=== PATIENT | female | born 1965 | race Caucasian/White ===

== ENCOUNTER 2020-08-09 10:46 | Observation (INO) | payer OTHER ==
[2020-08-09 15:01] LABS: Absolute Lymphocytes (CBC) 0.8 K/uL (0.7-4.9); Basophils % 0.5 % (0-1.3); Hematocrit 30.9 % (36.0-45.0); Lymphocytes % 23.8 % (15.3-44.8); MPV 8.5 fL (7.6-11.3); RBC Red Blood Cell Count 3.55 M/uL (3.86-4.86)
[2020-08-09 15:12] LABS: Protime INR 0.89
[2020-08-09 15:26] LABS: ALT/SGPT 23 U/L (12-78); AST/SGOT 16 U/L (15-37); Albumin 3.6 g/dL (3.4-5.0); Alkaline Phosphatase 101 U/L (45-117); BUN Blood Urea Nitrogen 9 mg/dL (7-18); Bicarbonate 29 mmol/L (21-32); Bilirubin Direct < 0.1 mg/dL (0-0.2); Bilirubin Total 0.3 mg/dL (0.2-1.0); Glucose Level 95 mg/dL (74-106); Magnesium 2.1 mg/dL (1.8-2.4); Potassium 3.8 mmol/L (3.5-5.1); Protein, Total 7.2 g/dL (6.4-8.2); Sodium Level 142 mmol/L (136-145)
[2020-08-09 15:39] LABS: NT PRO-BNP 423 pg/mL (<125); Troponin (Emerg Dept Use Only) < 0.02 ng/mL (0.0-0.045)
--- NOTE | 2020-08-09 15:47 | RAD REPORT ---
EXAM DESCRIPTION: RAD - Chest Single View - 08/09/2020 3:35 pm CLINICAL HISTORY: shortness of breath Chest pain. COMPARISON: No comparisons FINDINGS: Portable technique limits examination quality. The lungs are grossly clear. The heart is mildly enlarged in size. No displaced fractures. IMPRESSION: No acute intrathoracic process suspected.
--- NOTE | 2020-08-09 16:25 | RAD REPORT ---
EXAM DESCRIPTION: US - Extrem Venous W Compress Srikanth - 08/09/2020 4:16 pm CLINICAL HISTORY: leg swelling Bilateral leg edema and swelling. COMPARISON: No comparisons TECHNIQUE: Real-time sonographic interrogation of the left and right lower extremity deep venous sys tems was performed. FINDINGS: Normal compressibility, flow augmentation, phasic flow and spontaneous flow is identified in both the left and right lower extremity deep venous systems. IMPRESSION: No sonographic evidence of left or right lower extremity deep venous thrombosis.
--- NOTE | 2020-08-09 16:46 | RAD REPORT ---
EXAM DESCRIPTION: CT - Chest For Pe Angio - 08/09/2020 4:36 pm CLINICAL HISTORY: Chest pain. shortness of breath COMPARISON: No comparisons TECHNIQUE: CT angiogram of the pulmonary arteries was performed with MIP. All CT scans are performed using dose optimization technique as appropriate and may include automated exposure control or mA/KV adjustment according to patient size. FINDINGS: No evidence of pulmonary thromboembolism. No acute aortic finding demonstrated. Mild interstitial pulmonary edema suspected. Small bilateral pleural effusions. No concerning bony finding. Postsurgical changes about the stomach. IMPRESSION: No evidence of pulmonary thromboembolism. Mild CHF versus volume overload.
--- NOTE | 2020-08-09 18:20 | ER ---
Nurse's Notes [facility] Name: Angelica Kirkland Age: 54 yrs Sex: Female : 1965 Arrival Date: 08/09/2020 Time: 10:47 Bed 23 Private MD: Diagnosis: Acute combined systolic (congestive) and diastolic (congestive) heart failure Presentation: 08/09 10:52 Chief complaint: Lower leg swelling and SOB x 4 days, palpitations today. Coronavirus hb screen: At this time, the client does not indicate any symptoms associated with coronavirus-19. Ebola Screen: No symptoms or risks identified at this time. Initial Sepsis Screen: Does the patient meet any 2 criteria? No. Patient's initial sepsis screen is negative. Does the patient have a suspected source of infection? No. Patient's initial sepsis screen is negative. Risk Assessment: Do you want to hurt yourself or someone else? Patient reports no desire to harm self or others. Onset of symptoms was August 05, 2020. 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 - Social history:: Smoking status: Patient denies any tobacco usage or history of. Screenin:58 Abuse screen: Denies threats or abuse. Denies injuries from another. Nutritional ca1 screening: No deficits noted. Tuberculosis screening: No symptoms or risk factors identified. Fall Risk IV access (20 points). Assessment: 13:58 General: Appears in no apparent distress. comfortable, Behavior is calm, cooperative, ca1 appropriate for age. Pain: Denies pain. Pain does not radiate. Pain began. Neuro: Level of Consciousness is awake, alert, obeys commands, Oriented to person, place, time, situation, Appropriate for age. Cardiovascular: Heart tones S1 S2 present Capillary refill < 3 seconds Patient's skin is warm and dry. Edema is 1+ to left ankle, left foot, left toes, right ankle, right foot and right toes. Respiratory: Reports shortness of breath on exertion Airway is patent Respiratory effort is even, unlabored, Respiratory pattern is regular, symmetrical, Breath sounds are clear bilaterally. GI: Abdomen is round non-distended, Bowel sounds present X 4 quads. Abd is soft and non tender X 4 quads. : No signs and/or symptoms were reported regarding the genitourinary system. EENT: No signs and/or symptoms were reported regarding the EENT system. Derm: Skin is intact, is healthy with good turgor, Skin is pink, warm \T\ dry. Musculoskeletal: Circulation, motion, and sensation intact. Capillary refill < 3 seconds. 14:50 Reassessment: Patient appears in no apparent distress at this time. Patient and/or ca1 family updated on plan of care and expected duration. Pain level reassessed. Patient is alert, oriented x 3, equal unlabored respirations, skin warm/dry/pink. 15:50 Reassessment: Patient appears in no apparent distress at this time. Patient and/or ca1 family updated on plan of care and expected duration. Pain level reassessed. Patient is alert, oriented x 3, equal unlabored respirations, skin warm/dry/pink. 16:41 Reassessment: Patient appears in no apparent distress at this time. Patient and/or ca1 family updated on plan of care and expected duration. Pain level reassessed. Patient is alert, oriented x 3, equal unlabored respirations, skin warm/dry/pink. 17:45 Reassessment: Patient appears in no apparent distress at this time. Patient and/or ca1 family updated on plan of care and expected duration. Pain level reassessed. Patient is alert, oriented x 3, equal unlabored respirations, skin warm/dry/pink. 18:50 Reassessment: Patient appears in no apparent distress at this time. Patient and/or ca1 family updated on plan of care and expected duration. Pain level reassessed. Patient is alert, oriented x 3, equal unlabored respirations, skin warm/dry/pink. 19:47 Reassessment: Patient appears in no apparent distress at this time. Patient and/or ca1 family updated on plan of care and expected duration. Pain level reassessed. Patient is alert, oriented x 3, equal unlabored respirations, skin warm/dry/pink. Vital Signs: 10:52 BP 160 / 67; Pulse 63; Resp 16; Temp 98.3; Pulse Ox 97% on R/A; Weight 122.47 kg; hb Height 5 ft. 8 in. (172.72 cm); Pain 0/10; 14:55 BP 159 / 98; Pulse 56; Resp 17 S; Pulse Ox 98% on R/A; ca1 15:50 BP 165 / 86; Pulse 57; Resp 16 S; Pulse Ox 99% on R/A; ca1 16:50 BP 172 / 92; Pulse 63; Resp 16 S; Pulse Ox 99% on R/A; ca1 17:50 BP 154 / 87; Pulse 55; Resp 16 S; Pulse Ox 99% on R/A; ca1 18:55 BP 166 / 67; Pulse 55; Resp 16 S; Pulse Ox 100% on R/A; ca1 19:45 BP 155 / 81; Pulse 55; Resp 16 S; Pulse Ox 98% on R/A; ca1 10:52 Body Mass Index 41.05 (122.47 kg, 172.72 cm) hb ED Course: 10:47 Patient arrived in ED. ds1 10:54 Triage completed. hb 10:57 Arm band placed on. hb 13:49 Terry Deshpande PA is PHCP. jmm 13:49 Jose Toussaint MD is Attending Physician. m 13:54 Vianca Xiao, KERRIE is Primary Nurse. ca1 13:58 Patient has correct armband on for positive identification. Placed in gown. Bed in low ca1 position. Call light in reach. Side rails up X2. hvac tech on. Pulse ox on. NIBP on. Warm blanket given. Head of bed elevated. 14:03 Patient maintains SpO2 saturation greater than 95% on room air. ca1 14:26 EKG done, by ED staff, reviewed by Terry VELA. dh3 15:34 Notified Nurse Practitioner and/or Physician Laboratory Tester of a critical lab result(s), hb DDIMER [id number]. 15:35 XRAY Chest (1 view) In Process Unspecified. EDMS 16:16 US Extremity Venous W Compression Srikanth In Process Unspecified. EDMS 16:35 CT Chest For PE Angio In Process Unspecified. EDMS 18:19 Meir Harris DO is Hospitalizing Provider. [facility] 19:47 No provider procedures requiring assistance completed. Patient admitted, IV remains in ca1 place. 19:48 Report given to KERRIE Gamez. ca1 Administered Medications: 19:07 Drug: Lasix 40 mg Route: IVP; Site: right antecubital; ca1 19:50 Follow up: Urine output 300 ml; Response: No adverse reaction ca1 Output: 19:50 Urine: 300ml; Total: 300ml. ca1 Outcome: 18:19 Decision to Hospitalize by Provider. [facility] 19:47 Admitted to ER Hold. Please see [facility] for further documentation. ca1 19:47 Condition: stable 19:47 Instructed on the need for admit. 08/10 01:49 Patient left the ED. mw2 Signatures: Dispatcher [employer] EDMS Terry Deshpande PA PA Li Alcaraz ds1 Eileen Mathis, RN RN Dominique Keenan 3 Sharron Felder mw2 Vianca Xiao RN RN ca1
--- NOTE | 2020-08-09 18:20 | EDPHYS ---
Physician Documentation [facility] Name: Angelica Kirkland Age: 54 yrs Sex: Female : 1965 Arrival Date: 08/09/2020 Time: 10:47 Bed 23 Private MD: ED Physician Jose Toussaint HPI: 08/09 14:16 This 54 yrs old Female presents to ER via Ambulatory with complaints of jmm Irregular Pulse, Shortness Of Breath. 14:16 The patient has shortness of breath with light activity. Onset: The symptoms/episode jmm began/occurred gradually, 3 day(s) ago. Duration: The symptoms are continuous. The patient's shortness of breath is aggravated by exertion, light activity. Associated signs and symptoms: Pertinent negatives: chest pain, fever. This is a 54 year old female with a history of anxiety, depression that presents to the ED with complaints of shortness of breath, palpitations, swelling to her lower legs beginning this past Friday. Denies fever, productive cough. . 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 - Social history:: Smoking status: Patient denies any tobacco usage or history of. ROS: 14:16 Constitutional: Negative for fever, chills, and weight loss, Cardiovascular: Negative jmm for chest pain, palpitations, and edema. 14:16 Back: Negative for injury and pain. 14:16 Respiratory: Positive for shortness of breath. 14:16 Abdomen/GI: Positive for swelling. 14:16 MS/extremity: Positive for swelling. 14:16 All other systems are negative. Exam: 14:16 Constitutional: This is a well developed, well nourished patient who is awake, alert, jmm and in no acute distress. Head/Face: atraumatic. Eyes: EOMI, no conjunctival erythema appreciated ENT: Moist Mucus Membranes Neck: Trachea midline, Supple Chest/axilla: Normal chest wall appearance and motion. Cardiovascular: Regular rate and rhythm. No edema appreciated Respiratory: Normal respirations, no respiratory distress appreciated Abdomen/GI: Non distended, soft Back: Normal ROM Skin: General appearance color normal 14:16 Musculoskeletal/extremity: mild edema noted to the legs bilaterally, compartments are soft, dorsalis pulse appreciated, bilaterally. 14:16 Skin: Appearance: Color: normal in color. 14:16 Neuro: Orientation: is normal, Mentation: is normal, Memory: is normal. 14:16 Psych: Behavior/mood is pleasant, cooperative. 14:32 ECG was reviewed by the Attending Physician. [facility] Vital Signs: 10:52 BP 160 / 67; Pulse 63; Resp 16; Temp 98.3; Pulse Ox 97% on R/A; Weight 122.47 kg; hb Height 5 ft. 8 in. (172.72 cm); Pain 0/10; 14:55 BP 159 / 98; Pulse 56; Resp 17 S; Pulse Ox 98% on R/A; ca1 15:50 BP 165 / 86; Pulse 57; Resp 16 S; Pulse Ox 99% on R/A; ca1 16:50 BP 172 / 92; Pulse 63; Resp 16 S; Pulse Ox 99% on R/A; ca1 17:50 BP 154 / 87; Pulse 55; Resp 16 S; Pulse Ox 99% on R/A; ca1 18:55 BP 166 / 67; Pulse 55; Resp 16 S; Pulse Ox 100% on R/A; ca1 19:45 BP 155 / 81; Pulse 55; Resp 16 S; Pulse Ox 98% on R/A; ca1 10:52 Body Mass Index 41.05 (122.47 kg, 172.72 cm) hb MDM: 14:12 Patient medically screened. [facility] 18:18 Data reviewed: vital signs, nurses notes. Counseling: I had a detailed discussion with [facility] the patient and/or guardian regarding: the historical points, exam findings, and any diagnostic results supporting the discharge/admit diagnosis, radiology results, the need for further work-up and treatment in the hospital. ED course: I discussed the patient with MARTA Connor whom accepted the patient to Dr. Kimberly jeffrey. . 08/09 14:13 Order name: Basic Metabolic Panel; Complete Time: 15:29 [facility] 08/09 14:13 Order name: CBC with Diff [facility] 08/09 14:13 Order name: LFT's [facility] 08/09 14:13 Order name: Magnesium [facility] 08/09 14:13 Order name: NT PRO-BNP [facility] 08/09 14:13 Order name: PT-INR [facility] 08/09 14:13 Order name: Troponin (emerg Dept Use Only) [facility] 08/09 14:13 Order name: Procalcitonin [facility] 08/09 14:13 Order name: Lactate [facility] 08/09 14:13 Order name: D-Dimer [facility] 08/09 15:10 Order name: CBC with Automated Diff; Complete Time: 15:16 [facility] 08/09 15:24 Order name: Lactate; Complete Time: 15:29 [facility] 08/09 15:26 Order name: Liver (Hepatic) Function; Complete Time: 15:29 [facility] 08/09 15:27 Order name: Magnesium; Complete Time: 15:29 [facility] 08/09 14:13 Order name: XRAY Chest (1 view); Complete Time: 16:00 [facility] 08/09 14:13 Order name: EKG; Complete Time: 14:14 [facility] 08/09 14:13 Order name: Cardiac monitoring; Complete Time: 14:57 [facility] 08/09 14:13 Order name: EKG - Nurse/Tech; Complete Time: 14:29 [facility] 08/09 15:33 Order name: Protime (+INR); Complete Time: 15:37 [facility] 08/09 15:33 Order name: D-Dimer; Complete Time: 15:37 [facility] 08/09 15:34 Order name: CT Chest For PE Angio; Complete Time: 16:54 [facility] 08/09 15:34 Order name: US Extremity Venous W Compression Srikanth; Complete Time: 16:27 [facility] 08/09 15:39 Order name: Troponin (Emerg Dept Use Only); Complete Time: 15:44 EDMS 08/09 15:39 Order name: NT PRO-BNP; Complete Time: 15:44 [facility] 08/09 15:48 Order name: Procalcitonin; Complete Time: 16:00 [facility]DC 08/09 18:22 Order name: COVID-19 ca1 08/09 19:12 Order name: CORONAVIRUS [facility] 08/09 20:00 Order name: SARS-COV-2 RT PCR; Complete Time: 20:04 [facility]DC 08/09 23:30 Order name: Troponin I; Complete Time: 23:32 [facility]DC 08/09 14:13 Order name: IV Saline Lock; Complete Time: 14:57 [facility] 08/09 14:13 Order name: Labs collected and sent; Complete Time: 14:57 [facility] 08/09 14:13 Order name: O2 Per Protocol; Complete Time: 14:57 [facility] 08/09 14:13 Order name: O2 Sat Monitoring; Complete Time: 14:57 jmm EC:32 Rate is 57 beats/min. Rhythm is regular. QRS [place] is Normal. VA interval is normal. QRS jmm interval is normal. QT interval is normal. No Q waves. T waves are Inverted in lead aVR. T waves are Flattened in leads III, aVL, aVF. Reviewed by me. Administered Medications: 19:07 Drug: Lasix 40 mg Route: IVP; Site: right antecubital; ca1 19:50 Follow up: Urine output 300 ml; Response: No adverse reaction ca1 Disposition: 08/09/20 18:19 Hospitalization ordered by Meir Harris for Observation. Preliminary diagnosis is Acute combined systolic (congestive) and diastolic (congestive) heart failure. - Bed requested for Telemetry/MedSurg (observation). - Status is Observation. mw2 - Condition is Stable. - Problem is new. - Symptoms are unchanged. Addendum: 08/22/2020 04:00 Co-signature as Attending Physician, Jose Toussaint MD. m a2 Signatures: Dispatcher [employer] EDDC Terry Deshpande PA PA [facility] Gaurav Todd, DEPORTATION EXAMINER-C DEPORTATION EXAMINER-Cla1 Mercedes Ma RN RN tl1 Eileen Mathis RN RN Jose Toussaint MD MD hi2 Sharron Felder mw2 Vianca Xiao RN RN ca1 Corrections: (The following items were deleted from the chart) 08/09 19:25 18:19 Hospitalization Ordered by Meir Harris DO for Observation. Preliminary tl1 diagnosis is Acute combined systolic (congestive) and diastolic (congestive) heart failure. Bed requested for Telemetry/MedSurg (observation). Status is Observation. Condition is Stable. Problem is new. Symptoms are unchanged. [facility] 08/10 01:44 08/09 19:25 08/09/2020 18:19 Hospitalization Ordered by Meir Harris DO for tl1 Observation. Preliminary diagnosis is Acute combined systolic (congestive) and diastolic (congestive) heart failure. Bed requested for [facility] ER HOLD. Status is Observation. Condition is Stable. Problem is new. Symptoms are unchanged. tl1 08/10 01:49 01:44 08/09/2020 18:19 Hospitalization Ordered by Meir Harris DO for Observation. mw2 Preliminary diagnosis is Acute combined systolic (congestive) and diastolic (congestive) heart failure. Bed requested for Telemetry/MedSurg (observation). Status is Observation. Condition is Stable. Problem is new. Symptoms are unchanged. tl1
--- NOTE | 2020-08-09 19:07 | P.HP ---
Certification for Inpatient Patient admitted to: Observation With expected LOS: <2 Midnights Patient will require the following post-hospital care: None Practitioner: I am a practitioner with admitting privileges, knowledge of patient current condition, hospital course, and medical plan of care. Services: Services provided to patient in accordance with Admission requirements found in Title 42 Section 412.3 of the Code of Federal Regulations <Gaurav Todd - Last Filed: 08/09/20 19:03> Patient admitted to: Observation With expected LOS: <2 Midnights <Meir Harris - Last Filed: 08/10/20 12:31> Patient History Date of Service: 08/09/20 Primary Care Provider: Dr. Abernathy Reason for admission: Dyspnea History of Present Illness: 54-year-old female with history of anxiety and depression presents to the emergency department for shortness of breath and lower extremity swelling bilaterally. Patient reports that her symptoms began on 08/06/2020 and had progressively been getting worse. Patient denies any history of congestive heart failure. Patient was evaluated in the emergency department and found to have mildly elevated BNP 423 and mild anemia with hemoglobin 10.4 and hematocrit 30.9. 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 Patient had CT PE protocol performed due to elevated D-dimer and shortness of breath which revealed mild CHF pattern. Mild bilateral pitting edema noted to lower extremities. ED provider wishes to admit patient under observation for further evaluation and management. When I saw the patient in the emergency department she is awake, alert, oriented x3. Patient not hypoxic, seems to doing well at this time. - Past Medical/Surgical History -: Anxiety and depression -: Bilateral knee surgery -: Left elbow surgery -: Carpal tunnel surgery -: Citlalli-en-Y bypass Psychosocial/ Personal History: Patient is currently unemployed and lives with her - Family History Father -: Stroke, Cancer Mother -: Cancer Sister -: Hypertension Brother -: Hypertension - Social History Smoking Status: Never smoker Alcohol use: Yes CD- Drugs: No Caffeine use: Yes Place of Residence: Home <Gaurav Todd - Last Filed: 08/09/20 19:03> Date of Service: 08/10/20 - Past Medical/Surgical History Diabetic: No <Meir Harris - Last Filed: 08/10/20 12:31> Review of Systems 10-point ROS is otherwise unremarkable Respiratory: Shortness of Breath, SOB with Excertion Cardiovascular: Orthopnea, Edema <Gaurav Todd - Last Filed: 08/09/20 19:03> Physical Examination - Physical Exam General: Alert, In no apparent distress HEENT: Atraumatic, PERRLA, Mucous membr. moist/pink Neck: Supple, 2+ carotid pulse no bruit, No LAD Respiratory: Normal air movement, Crackles/rales (Mild bibasilar) Cardiovascular: Regular rate/rhythm, Normal S1 S2, Edema (1+ pitting edema bilateral lower extremities) Capillary refill: <2 Seconds Gastrointestinal: Normal bowel sounds, No tenderness Musculoskeletal: No tenderness Integumentary: No rashes Neurological: Normal gait, Normal speech, Normal strength at 5/5 x4 extr, Normal tone, Normal affect - Studies Laboratory Data (last 24 hrs) 08/09/20 14:40: PT 10.5, INR 0.89 08/09/20 14:40: WBC 3.5 L, Hgb 10.4 L, Hct 30.9 L, Plt Count 256 08/09/20 14:40: Sodium 142, Potassium 3.8, BUN 9, Creatinine 0.60, Glucose 95, Magnesium 2.1, Total Bilirubin 0.3, AST 16, ALT 23, Alkaline Phosphatase 101 <Gaurav Todd - Last Filed: 08/09/20 19:03> - Studies Laboratory Data (last 24 hrs) 08/09/20 14:40: PT 10.5, INR 0.89 08/09/20 14:40: WBC 3.5 L, Hgb 10.4 L, Hct 30.9 L, Plt Count 256 08/09/20 14:40: Sodium 142, Potassium 3.8, BUN 9, Creatinine 0.60, Glucose 95, Magnesium 2.1, Total Bilirubin 0.3, AST 16, ALT 23, Alkaline Phosphatase 101 <Meir Harris - Last Filed: 08/10/20 12:31> Assessment and Plan - Plan Assessment Dyspnea and pedal edema suspect underlying undiagnosed congestive heart failure Anxiety with depression Plan Dyspnea and pedal edema suspect underlying undiagnosed congestive heart failure: Daily weights, 1500 cc per day fluid restriction, monitor on telemetry. Cardiology consult in place. Continue with IV diuresis. Patient can likely be discharged tomorrow with either inpatient or outpatient echocardiogram arrangement. DVT prophylaxis Lovenox 40 mg subcutaneous once daily. Anxiety with depression: Home medications continued. Discharge Plan: Home Plan to discharge in: 24 Hours - Advance Directives Does patient have a Living Will: No Does patient have a Durable POA for Healthcare: No - Code Status/Comfort Care Code Status Assessed: Yes (Full code) Critical Care: No Time Spent Managing Pts Care (In Minutes): 55 <Gaurav Todd - Last Filed: 08/09/20 19:03> - Plan Case discussed in detail with nurse practitioner. Agree with assessment, evaluation and plan of care. Please see discharge summary for details <Meir Harris - Last Filed: 08/10/20 12:31>
[2020-08-09] MEDS ORDERED: FUROSEMIDE 40 MG/4 ML VIAL ONE (19:17)
[2020-08-09] MEDS ORDERED: ACETAMINOPHEN 500 MG TAB PO PRN (20:18)
[2020-08-09] MEDS ORDERED: ALPRAZOLAM 0.5 MG TABLET PO PRN (20:18)
[2020-08-09] MEDS ORDERED: TRAZODONE 150 MG TAB PO PRN (20:18)
[2020-08-09] MEDS ORDERED: ONDANSETRON 4 MG/2 ML VIAL IV PRN (20:18)
[2020-08-09 21:22] VITALS: BMI 39.5
[2020-08-10] MEDS ORDERED: ACETAMINOPHEN 500 MG TAB ONE (00:22)
[2020-08-10] MEDS ORDERED: ALPRAZOLAM 0.5 MG TABLET ONE (00:22)
[2020-08-10] MEDS ORDERED: HYDROCODONE/APAP 5/325 MG TAB PO ONE (00:57)
[2020-08-10 04:09] LABS: Absolute Lymphocytes (CBC) 1.1 K/uL (0.7-4.9); Basophils % 0.5 % (0-1.3); Hematocrit 29.5 % (36.0-45.0); Lymphocytes % 29.3 % (15.3-44.8); MPV 8.5 fL (7.6-11.3); RBC Red Blood Cell Count 3.32 M/uL (3.86-4.86)
[2020-08-10 04:31] LABS: BUN Blood Urea Nitrogen 10 mg/dL (7-18); Bicarbonate 29 mmol/L (21-32); Glucose Level 181 mg/dL (74-106); HDL Cholesterol 63 mg/dL (40-60); LDL Cholesterol, Calculated 40 (<130); Magnesium 2.1 mg/dL (1.8-2.4); Potassium 3.1 mmol/L (3.5-5.1); Sodium Level 141 mmol/L (136-145); Troponin I < 0.02 ng/mL (0.0-0.045)
[2020-08-10] MEDS ORDERED: PANTOPRAZOLE 40MG TABLET PO SCH (06:30)
[2020-08-10] MEDS ORDERED: POTASSIUM CL 40 MEQ in NA CHLORIDE 0.9% 500 ML IV SCH (07:00)
[2020-08-10] MEDS ORDERED: POTASSIUM CL SA 10 MEQ TAB PO ONE (07:44)
[2020-08-10] MEDS ORDERED: LORATADINE 10 MG TAB PO SCH (09:00)
[2020-08-10] MEDS ORDERED: lisinopriL 5 MG TAB PO SCH (09:00)
[2020-08-10] MEDS ORDERED: ENOXAPARIN 40 MG/0.4 ML SQ SCH (09:00)
[2020-08-10] MEDS ORDERED: DULOXETINE 20 MG CAP PO SCH (09:00)
[2020-08-10] MEDS ORDERED: [UNRECOGNIZED DRUG - REMARK] PO SCH (09:00)
[2020-08-10] MEDS ORDERED: TYLENOL WITH CODEINE PO SCH (09:00)
[2020-08-10] MEDS ORDERED: HOME MED 1 EA UNK (Lansoprazole [Prevacid] 30 MG Capsule.Dr) PO SCH (09:00)
[2020-08-10] MEDS: FUROSEMIDE 40 MG/4 ML VIAL IV SCH ×2 (09:00→09:04)
--- NOTE | 2020-08-10 09:28 | P.DS ---
Admission Date: 08/09/20 Discharge Date: 08/10/20 Primary Care Provider: Dr. Abernathy Disposition: ROUTINE DISCHARGE Discharge Condition: GOOD Reason for Admission: Dyspnea Consultations: Cardiology-Dr. Jacobs Procedures: Venous Doppler: FINDINGS: Normal compressibility, flow augmentation, phasic flow and spontaneous flow is identified in both the left and right lower extremity deep venous systems. IMPRESSION: No sonographic evidence of left or right lower extremity deep venous thrombosis. CT scan: FINDINGS: No evidence of pulmonary thromboembolism. No acute aortic finding demonstrated. Mild interstitial pulmonary edema suspected. Small bilateral pleural effusions. No concerning bony finding. Postsurgical changes about the stomach. IMPRESSION: No evidence of pulmonary thromboembolism. Mild CHF versus volume overload. Medical problem list: Dyspnea with edema to the lower extremities secondary to acute on chronic diastolic CHF Anemia with history of B12 deficiency Depression with anxiety Pre diabetes GERD History of migraine headaches Obesity, BMI 39.5 Brief History of Present Illness: 54-year-old female with history of anxiety and depression presents to the emergency department for shortness of breath and lower extremity swelling bilaterally. Patient reports that her symptoms began on 08/06/2020 and had progressively been getting worse. Patient denies any history of congestive heart failure. Patient was evaluated in the emergency department and found to have mildly elevated BNP 423 and mild anemia with hemoglobin 10.4 and hematocrit 30.9. 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 Patient had CT PE protocol performed due to elevated D-dimer and shortness of breath which revealed mild CHF pattern. Mild bilateral pitting edema noted to lower extremities. ED provider wishes to admit patient under observation for further evaluation and management. Hospital Course: Patient presented with dyspnea, edema to the lower extremities secondary to acute on chronic diastolic CHF. Patient was given IV diuresis. Cardiology consulted to further evaluate. Echocardiogram performed. CT chest showed some pulmonary edema. Negative for pulmonary embolism. Venous Doppler negative. Her condition has improved. Patient is not require oxygen at discharge. Education on CHF provided. At discharge she will continue with Lasix 40 mg daily. Recommend to maintain a 1500 cc per day fluid restriction and low-salt diet. Recommend follow up with cardiology in 1-2 weeks to follow up this hospitalization and to further address. Patient elevated blood pressure upon admission. Patient was started on lisinopril. Blood pressures have improved. At discharge she will continue with aspirin 81 mg daily and lisinopril 5 mg daily. Recommend to maintain blood pressure less than 130/80. Further adjustment in medication can be done by her PCP. Patient with GERD. At discharge she may continue with her medication-Prevacid. Patient with history of migraine headache. At discharge she may continue with Topamax 50 mg at bedtime. Patient with depression with anxiety. At discharge she may continue with her current medications including trazodone 150 mg at bedtime, Cymbalta 20 mg daily, and alprazolam as needed. Further adjustment in medication can be done by her PCP.. Patient with hyperglycemia. This appears new. Hemoglobin A1c 6.0. Patient has pre diabetes. Recommend to recheck lab-hemoglobin A1c in 3-6 months to monitor this closely. Education on pre diabetes will be provided. Patient with obesity, BMI 39.5. Lifestyle modification education provided. Vital Signs/Physical Exam: Temp Pulse Resp BP Pulse Ox 97.8 F 64 16 138/63 95 08/10/20 08:00 08/10/20 08:00 08/10/20 08:00 08/10/20 08:00 08/10/20 08:00 General: Alert, In no apparent distress, Oriented x3, Cooperative HEENT: Atraumatic Neck: Supple Respiratory: Clear to auscultation bilaterally, Normal air movement Cardiovascular: Normal pulses, Regular rate/rhythm Gastrointestinal: Normal bowel sounds, Soft and benign, Non-distended, No masses, No rebound, No guarding Musculoskeletal: No erythema, No tenderness, No warmth Integumentary: Other (Less pitting edema to the lower extremities bilateral) Neurological: Normal speech, Normal strength at 5/5 x4 extr, Normal tone, Normal affect Laboratory Data at Discharge: WBC 3.9 K/uL (4.3-10.9) L 08/10/20 03:45 Hgb 9.6 g/dL (12.0-15.0) L 08/10/20 03:45 Hct 29.5 % (36.0-45.0) L 08/10/20 03:45 Plt Count 223 K/uL (152-406) 08/10/20 03:45 PT 10.5 SECONDS (9.5-12.5) 08/09/20 14:40 INR 0.89 08/09/20 14:40 Sodium 141 mmol/L (136-145) 08/10/20 03:45 Potassium 3.1 mmol/L (3.5-5.1) L 08/10/20 03:45 BUN 10 mg/dL (7-18) 08/10/20 03:45 Creatinine 0.73 mg/dL (0.55-1.3) 08/10/20 03:45 Glucose 181 mg/dL (74-106) H 08/10/20 03:45 Magnesium 2.1 mg/dL (1.8-2.4) 08/10/20 03:45 Total Bilirubin 0.3 mg/dL (0.2-1.0) 08/09/20 14:40 AST 16 U/L (15-37) 08/09/20 14:40 ALT 23 U/L (12-78) 08/09/20 14:40 Alkaline Phosphatase 101 U/L (45-117) 08/09/20 14:40 Troponin I < 0.02 ng/mL (0.0-0.045) 08/10/20 03:45 Triglycerides 102 mg/dL (<150) 08/10/20 03:45 Cholesterol 123 mg/dL (<200) 08/10/20 03:45 HDL Cholesterol 63 mg/dL (40-60) H 08/10/20 03:45 Cholesterol/HDL Ratio 1.95 08/10/20 03:45 Home Medications: Acetaminophen with Codeine [Tylenol with Codeine #4 Tablet] 1 tab PO TID 08/09/20 Alprazolam [Alprazolam ER] 0.5 mg PO DAILY 08/09/20 Duloxetine [Cymbalta *] 20 mg PO DAILY 08/09/20 Lansoprazole [Prevacid] 30 mg PO DAILY 08/09/20 Levocetirizine Dihydrochloride [24Hr Allergy Relief] 5 mg PO DAILY 08/09/20 Topiramate 50 mg PO BEDTIME 08/09/20 Trazodone [Desyrel*] 150 mg PO BEDTIME 08/09/20 Aspirin [Aspirin EC 81 MG] 81 mg PO DAILY #90 tablet. 08/10/20 Furosemide [Lasix] 40 mg PO DAILY #30 tab 08/10/20 lisinopriL [Prinivil*] 5 mg PO DAILY #30 tab 08/10/20 New Medications: Aspirin [Aspirin EC 81 MG] 81 mg PO DAILY #90 tablet. Furosemide [Lasix] 40 mg PO DAILY #30 tab lisinopriL [Prinivil*] 5 mg PO DAILY #30 tab Patient Discharge Instructions: 1. Follow up with PCP in 1 week to follow up this hospitalization. 2. Patient presented with dyspnea, edema to the lower extremities secondary to acute on chronic diastolic CHF. Patient was given IV diuresis. Cardiology consulted to further evaluate. Echocardiogram performed. CT chest showed some pulmonary edema. Negative for pulmonary embolism. Venous Doppler negative. Her condition has improved. Patient is not require oxygen at discharge. Education on CHF provided. At discharge she will continue with Lasix 40 mg daily. Recommend to maintain a 1500 cc per day fluid restriction and low-salt diet. Recommend follow up with cardiology in 1-2 weeks to follow up this hospitalization and to further address. 3. Patient elevated blood pressure upon admission. Patient was started on lisinopril. Blood pressures have improved. At discharge she will continue with aspirin 81 mg daily and lisinopril 5 mg daily. Recommend to maintain blood pressure less than 130/80. Further adjustment in medication can be done by her PCP. 4. Patient with GERD. At discharge she may continue with her medication-Prevacid. 5. Patient with history of migraine headache. At discharge she may continue with Topamax 50 mg at bedtime. 6. Patient with depression with anxiety. At discharge she may continue with her current medications including trazodone 150 mg at bedtime, Cymbalta 20 mg daily, and alprazolam as needed. Further adjustment in medication can be done by her PCP.. 7. Patient with hyperglycemia. This appears new. Hemoglobin A1c 6.0. Patient with pre diabetes. Education will be provided. 8. Patient with obesity, BMI 39.5. Lifestyle modification education provided. Diet: AHA Activity: Ad dilma Followup: Jennifer Abernathy MD [Primary Care Provider] - Time spent managing pt's care (in minutes): 55
--- NOTE | 2020-08-10 10:59 | EKG ---
Test Date: 2020-08-09 Test Time: 14:23:46 Field Service Supervisor: YOGI MEASUREMENT RESULTS: Intervals: Rate: 57 SD: 186 QRSD: 86 QT: 450 QTc: 438 [place]: P: 47 SD: 186 QRS: 26 T: 44 INTERPRETIVE STATEMENTS: Sinus bradycardia Nonspecific T wave abnormality Abnormal ECG No previous ECG available for comparison Electronically Signed On 08-10-20 10:56:34 MACHINING MANAGER by Efrem Jacobs
[2020-08-10 12:14] VITALS: O2SAT 95
[2020-08-10 13:21] VITALS: BP 182/76; TEMP 97.7
[2020-08-10] MEDS ORDERED: TOPIRAMATE 25 MG TAB PO SCH (21:00)
--- NOTE | 2020-08-11 08:48 | ECHO ---
HEIGHT: 5 ft 8 in WEIGHT: 260 lb 0 oz DATE OF STUDY: 08/10/[address]: Meir Harris DO 2-DIMENSIONAL: YES M.MODE: YES DOPPLER: YES COLOR FLOW: YES TDS: NO PORTABLE: NO DEFINITY: NO BUBBLE STUDY: NO DIAGNOSIS: CONGESTIVE HEART FAILURE CARDIAC HISTORY: CATHERIZATION: NO SURGERY: NO PROSTHETIC VALVE: NO PACEMAKER: NO MEASUREMENTS (cm) DIASTOLIC (NORMALS) SYSTOLIC (NORMALS) IVSd 1.0 (0.6-1.2) LA Diam 4.2 (1.9-4.0) LVEF 56% LVIDd 4.8 (3.5-5.7) LVIDs 3.4 (2.0-3.5) %FS 29% LVPWd 1.2 (0.6-1.2) Ao Diam 3.4 (2.0-3.7) 2 DIMENSIONAL ASSESSMENT: RIGHT ATRIUM: NORMAL LEFT ATRIUM: ENLARGED RIGHT VENTRICLE: NORMAL LEFT VENTRICLE: NORMAL TRICUSPID VALVE: NORMAL MITRAL VALVE: PULMONIC VALVE: NORMAL AORTIC VALVE: PERICARDIAL EFFUSION: NONE AORTIC ROOT: NORMAL LEFT VENTRICULAR WALL MOTION: NORMAL DOPPLER/COLOR FLOW: NORMAL COMMENTS: NORMAL LEFT VENTRICULAR EJECTION FRACTION 55-60% WITH NORMAL WALL MOTION. MILD MITRAL, AORTIC AND TRICUSPID REGURGITATION. ELEVATED RIGHT ATRIAL PRESSURE > 15 mmHg. TECHNOLOGIST: Lety BROWN
[2020-08-11] MEDS ORDERED: FUROSEMIDE 40 MG TABLET PO SCH (09:00)
--- NOTE | 2020-08-14 07:54 | CON ---
Date of Consultation: 08/10/2020 Reason For Consultation: Shortness of breath, palpitations, and pedal edema. History Of Present Illness: Ms. Kirkland is a 54-year-old, does not really have any past cardiac histor y. Per se, she has a history of anxiety and depression. She has a history of gastroesophageal reflu x disease and hypertension, came in with palpitation, shortness of breath, pedal edema. Denied any P ND or orthopnea. Denied any chest pain. Denied any unexplained nausea, vomiting, diaphoresis. She denied any syncope, but had palpitation. Her symptoms are exertional. She denied any fever or cough or chills. Past Medical History: As stated earlier. Allergies: INCLUDE DARVOCET. Review of Systems: Negative. Social History: Negative. Family History: Noncontributory. Medications: At home include aspirin, Xanax, Cymbalta, Lasix, Prevacid, and lisinopril. Physical Examination: Vital Signs: Stable. She was afebrile. HEENT: Negative. Neck: Supple with no bruit. CHEST: Reveals some rales at both bases. Cardiac: Revealed regular rhythm and rate with an S4 gallops. No murmurs or rubs. Abdomen: Benign. EXTREMITIES: Revealed no clubbing, cyanosis. She had 1+ edema. Diagnostic Data: She had a normal venous Doppler, normal CTA of the lungs with no pulmonary embolus. She had a normal EKG, normal chest x-ray. Echocardiogram that was done also showed a normal ejecti on fraction. Her BNP was 423. Hemoglobin was 9.6. D-dimer was 8078. Her potassium was 3.1. Impression And Plan: Possible mild congestive heart failure with elevated BNP and some shortness of breath. Could be diastolic and certainly could be demand high cardiac output secondary to her anemia . Her potassium is low because of her Lasix intake at home and that need to be adjusted. Her echoca rdiogram showed a normal ejection fraction. I think she needs to be diuresed gently. I think she ne eds to have potassium added to her Lasix regimen at home. She needs to have anemia investigated. It may be reasonable to put her on a low-dose beta-malik. Nevertheless, when she feels better, she c an go home. I think we need to make an appointment for her to have an outpatient Lexiscan and I will do that in the office. The case was discussed with Dr. Harris. She can go home whenever it is okay with him. ROSLYN/TYLER Voice ID: [id number] Report ID: [id number]
== END 2020-08-10 13:58 | disposition home or self-care (01) ==
LOC: ER 10:46 → ERHOLD 19:11 → 4TH 08-10 00:46
PROVIDERS: ADMIT Family Medicine; ATTEND Family Medicine
DX: I50.33 Acute on chronic diastolic (congestive) heart failure (principal); D51.9 Vitamin B12 deficiency anemia, unspecified; R73.03 Prediabetes; F41.8 Other specified anxiety disorders; K21.9 Gastro-esophageal reflux disease without esophagitis; G43.909 Migraine, unspecified, not intractable, without status migrainosus; E87.6 Hypokalemia; Z98.84 Bariatric surgery status; E66.9 Obesity, unspecified; Z68.39 Body mass index [BMI] 39.0-39.9, adult; Z88.6 Allergy status to analgesic agent; Z20.828 Contact with and (suspected) exposure to other viral communicable diseases; Z82.3 Family history of stroke; Z82.49 Family history of ischemic heart disease and other diseases of the circulatory system; Z80.9 Family history of malignant neoplasm, unspecified
CPT/HCPCS: 93005; 93306; 85025 ×2; 80048 ×2; 36415; 83735 ×2; 85610; 80061; 85379; 80076; 83605; 84443; 83036; 84484 ×3; 84439; 84145; 83880; 71275; 71045; 93970; 96374; 99285; U0003; Q9967; J1940 ×2; J3480; J1650; J7040; G0378 ×3

== ENCOUNTER 2022-01-01 10:35 | Day surgery (SDC) | payer BC, OTHER ==
[2022-01-01 09:08] LABS: Absolute Lymphocytes (CBC) 1.1 K/uL (0.7-4.9); Hematocrit 32.7 % (36.0-45.0); Lymphocytes % 30.7 % (15.3-44.8); MPV 8.4 fL (7.6-11.3); RBC Red Blood Cell Count 3.78 M/uL (3.86-4.86)
[2022-01-01 09:28] LABS: Potassium 4.1 mmol/L (3.5-5.1)
--- NOTE | 2022-01-01 10:49 | EKG ---
Test Date: 2022-01-01 Test Time: 07:43:45 Spooling Supervisor: AZAR MEASUREMENT RESULTS: Intervals: Rate: 62 MN: 186 QRSD: 86 QT: 412 QTc: 418 [place]: P: 44 MN: 186 QRS: 9 T: 46 INTERPRETIVE STATEMENTS: Normal sinus rhythm Cannot rule out Anterior infarct, age undetermined Abnormal ECG Compared to ECG 08/09/2020 14:23:46 Myocardial infarct finding now present Sinus bradycardia no longer present T-wave abnormality no longer present Electronically Signed On 01-01-22 10:49:10 CDT by Efrem Jacobs
[2022-01-01] MEDS ORDERED: CEFAZOLIN SODIUM 1 GM/VIAL ONE (11:08)
[2022-01-01] MEDS ORDERED: NA CHLORIDE 0.9% 50 ML ONE (11:08)
[2022-01-01] MEDS ORDERED: Ringers Lactate 1,000 ML IV ONE (11:08)
[2022-01-01] MEDS ORDERED: LIDOCAINE 1% MPF 5 ML VIAL ONE (12:25)
[2022-01-01] MEDS ORDERED: FENTANYL CITR 100 MCG/2 ML ONE (12:26)
[2022-01-01] MEDS ORDERED: MIDAZOLAM HCL 2 MG/2 ML INJ ONE (12:26)
[2022-01-01] MEDS ORDERED: dexAMETHasone 10 MG/ML VIAL ONE ×2 (12:26→14:04)
[2022-01-01] MEDS ORDERED: ROPLVACAINE HCL 40 ML ONE (12:26)
[2022-01-01] MEDS ORDERED: KETOROLAC 30 MG/ML INJ ONE (14:04)
[2022-01-01] MEDS ORDERED: ONDANSETRON 4 MG/2 ML VIAL ONE (14:05)
--- NOTE | 2022-01-01 14:58 | RAD REPORT ---
EXAM DESCRIPTION: RAD - Fluoroscopy <1 Hour - 01/01/2022 2:41 pm FINDINGS: There were 6 portable C-arm views submitted from fluoroscopic assisted placement of fractu re fixation pins into the fifth metacarpal. No suspicious or unexpected finding. Fluoro time was 0.6 minutes. Cumulative dose was 0.543 mGy.
[2022-01-01 16:53] VITALS: BP 112/54; TEMP 97; O2SAT 98
== END 2022-01-01 16:15 | disposition home or self-care (01) ==
LOC: OR 10:35
PROVIDERS: ATTEND Orthopaedic Surgery
PROC: 0PSP34Z Reposition Right Metacarpal with Internal Fixation Device, Percutaneous Approach (ICD-10-PCS; principal; 2022-01-01 12:00)
DX: S62.326A Displaced fracture of shaft of fifth metacarpal bone, right hand, initial encounter for closed fracture (principal); I10 Essential (primary) hypertension; F41.9 Anxiety disorder, unspecified; Z20.822 Contact with and (suspected) exposure to COVID-19
CPT/HCPCS: 26608; 93005; 85025; 80048; 36415; 76000; U0003; J2250; J3010; J1100 ×2; J2795; J7120; J2405; J0690